=== PATIENT | female | born 1955 | race Caucasian/White ===

== ENCOUNTER 2022-05-18 01:19 | Emergency (ER) | payer MEDICARE ==
--- NOTE | 2022-05-18 02:59 | ED Physician Documentation ---
PD HPI HEAD INJURY - Stated complaint Stated Complaint: fell down steps, hit head - Chief complaint Chief Complaint: Trauma Hd/Nk - History obtained from History obtained from: Patient, Family (Patient's daughter) - Additional information Additional information: Patient is a 67-year-old female with no significant past medical history presenting for evaluation of a head injury that occurred just prior to arrival. Patient was having a reunion with her daughter and they were drinking wine and playing darts. They were walking inside and patient had gone up a step when she fell backwards and hit her head on the concrete. Daughter does not believe she lost consciousness but patient is unsure.Patient does not take any blood thinners.Patient denies pain anywhere other than her head.Patient denies feeling unwell or any symptoms prior to falling. Review of Systems Constitutional: denies: Fever Nose: denies: Congestion Respiratory: denies: Dyspnea, Cough GI: denies: Abdominal Pain, Vomiting : denies: Dysuria Skin: denies: Laceration (s) Musculoskeletal: denies: Neck pain, Back pain Neurologic: reports: Head injury. denies: Focal weakness PD PAST MEDICAL HISTORY - Present Medications Home Medications: Ambulatory Orders Medication Instructions Recorded Confirmed No Known Home Medications 05/18/22 05/18/22 - Allergies Allergies/Adverse Reactions: Allergies Allergy/AdvReac Type Severity Reaction Status Date / Time No Known Drug Allergies Allergy Verified 05/18/22 02:05 PD ED PE NORMAL - General General: Alert and oriented X 3, No acute distress, Well developed/nourished - HEENT HEENT: Atraumatic, PERRL, EOMI, Ears normal, Other (Posterior scalp hematoma; No signs of basilar skull fracture) - Neck Neck: Supple, no meningeal sign, No bony TTP - Cardiac Cardiac: RRR, No murmur, Strong equal pulses - Respiratory Respiratory: No respiratory distress, Clear bilaterally - Abdomen Abdomen: Normal bowel sounds, Soft, Non tender - Back Back: No spinal TTP - Derm Derm: Warm and dry - Extremities Extremities: No deformity - Neuro Neuro: Alert and oriented X 3, 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 No: Normal speech (Slightly slurred, smells of EtOH) Eye Opening: Spontaneous Motor: Obeys Commands Verbal: Oriented GCS Score: 15 - Psych Psych: Normal mood Results - Vitals Vitals: Vital Signs - 24 hr 05/18/22 05/18/22 01:25 03:43 Temperature 36.5 C Heart Rate 86 99 Respiratory 16 18 Rate Blood Pressure 127/88 H 123/89 H O2 Saturation 97 98 Oxygen O2 Source Room air PD MEDICAL DECISION MAKING - ED course Complexity details: reviewed results, d/w patient, d/w family ED course: Patient with head injury after falling back in setting of alcohol use. She has small scalp hematoma but otherwise no injuries noted. Unable to apply Nexus criteria due to alcohol use. Cervical collar was placedOn patient in ED. CT head and cervical spine were obtained and negative for acute findings. C-spine was also cleared clinically. Patient was able to ambulate steadily without assistance and speech was clear. At that point she appeared clinically sober and was appropriate for discharge. Patient had sober ride home and her son-in-law. 0320 - Cervical spine cleared clinically, no tenderness in the midline. Reviewed CT findings with patient and daughter at the bedside. Patient aware that we will continue to monitor until she is clinically sober and able to ambulate steadily without assistance.to Departure - Departure Disposition: 01 Home, Self Care Clinical Impression: Head injury Qualifiers: Encounter type: initial encounter Qualified Code(s): S09.90XA - Unspecified injury of head, initial encounter Fall down stairs Qualifiers: Encounter type: initial encounter Qualified Code(s): W10.8XXA - Fall (on) (from) other stairs and steps, initial encounter Condition: Stable Instructions: ED Head Injury Closed Comments: You were evaluated after a head injury. A CT scan was done of your brain as well as your cervical spine and did not show any significant findings.Please use Tylenol and ice as needed for pain over the next few days. Please avoid any alcohol use And get plenty of rest. If you have any worsening symptoms such as increased pain, confusion, weakness please return to the emergency department. Discharge Date/Time: 05/18/22 04:04
[2022-05-18 03:43] VITALS: BP 123/89
--- NOTE | 2022-05-18 07:59 | CT Report ---
PROCEDURE: HEAD WO INDICATIONS: etoh/head injury/?LOC TECHNIQUE: Noncontrast 4.5 mm thick angled axial sections acquired from the foramen magnum to the vertex. For r adiation dose reduction, the following was used: automated exposure control, adjustment of mA and/or kV according to patient size. COMPARISON: None. FINDINGS: Image quality: Excellent. CSF spaces: Basal cisterns are patent. No extra-axial fluid collections. Ventricles are normal in size and shape. Brain: No midline shift. No intracranial masses or hemorrhage. Mcpherson-white matter interface is norm al. Skull and face: Calvarium and visualized facial bones are intact, without suspicious lesions. Left p arietal scalp contusion. Sinuses: Visualized sinuses and mastoids are clear. IMPRESSION: No acute intracranial disease process. Reviewed by: Lacy Peña MD, PhD on 05/18/2022 7:57 AM PDT Approved by: Lacy Peña MD, PhD on 05/18/2022 7:57 AM PDT Station ID: [id number]
--- NOTE | 2022-05-18 08:02 | CT Report ---
PROCEDURE: CERVICAL SPINE WO INDICATIONS: etoh/head injury/?LOC TECHNIQUE: Noncontrast 3 mm thick sections acquired from the skull base to the T4 level. Sagittal and coronal r eformats were then constructed. For radiation dose reduction, the following was used: automated exp osure control, adjustment of mA and/or kV according to patient size. COMPARISON: None. FINDINGS: Image quality: Excellent. Bones: No fractures or dislocations. Visualized superior ribs are intact. Spine degenerative disc disease and facet arthropathy are noted. 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 Soft tissues: Prevertebral soft tissues are normal in thickness. No paravertebral hematomas. No ap ical pneumothoraces. IMPRESSION: No fracture. No acute osseous lesion. If there is continued clinical concern for pathology, then MRI should be considered for further evaluation. Reviewed by: Lacy Peña MD, PhD on 05/18/2022 8:00 AM PDT Approved by: Lacy Peña MD, PhD on 05/18/2022 8:00 AM PDT Station ID: [id number]
== END 2022-05-18 04:04 | disposition home or self-care (01) ==
LOC: ED 01:19
DX: S09.90XA Unspecified injury of head, initial encounter (principal); W10.8XXA Fall (on) (from) other stairs and steps, initial encounter
CPT/HCPCS: 99282; 99284